=== PATIENT | female | born 1995 | race Caucasian/White ===

== ENCOUNTER 2018-08-24 06:48 | Emergency (ER) | payer BC ==
[~2018-08-24] VITALS: Ht 165.1 cm; Wt 72.6 kg
[~2018-08-24 06:48] MED LIST: Crutch1 EACH MISC; IBUP600 PO; MEDR150I IM
[2018-08-24] MEDS ORDERED: IBUP800 PO (09:47)
[2018-08-24] MEDS ORDERED: CYCL10 PO (09:47)
== END 2018-08-24 10:11 | disposition home or self-care (01) ==
LOC: ER 06:48
DX: M54.5 Low back pain (principal); M25.551 Pain in right hip; Z88.6 Allergy status to analgesic agent; Z88.5 Allergy status to narcotic agent
CPT/HCPCS: 72100; 73502; 99283-25

== ENCOUNTER → 2021-06-28 | Outpatient (CLI) | payer BC ==
[~2021-06-28] MED LIST changes: +CYCL10 PO; +IBUP800 PO
== END ==
LOC: LAB SHORT 08:32 → LAB 08:32
DX: N39.0 Urinary tract infection, site not specified (principal)
CPT/HCPCS: 87086

== ENCOUNTER → 2022-01-31 | Outpatient (CLI) | payer BC ==
[~2022-01-31] MED LIST changes: +ALBU2.5V5 INH; +ALBU90OI INH; +Prednisone20 MG PO; +Tamiflu75 MG PO
== END | disposition home or self-care (01) ==
LOC: LAB 08:37 → LAB SHORT 08:37
DX: N39.0 Urinary tract infection, site not specified (principal)
CPT/HCPCS: 87077; 87086; 87186

== ENCOUNTER → 2022-05-27 | Outpatient (CLI) | payer BC ==
[2022-05-28 13:48] LABS: Candida species (DNA Probe) Positive (NEGATIVE); G. vaginalis (DNA Probe) Negative (NEGATIVE); T. vaginalis (DNA Probe) Negative (NEGATIVE)
== END | disposition home or self-care (01) ==
LOC: LAB SHORT 14:59 → LAB 14:59
PROVIDERS: Advanced Practice Midwife
DX: N76.0 Acute vaginitis (principal)
CPT/HCPCS: 87480; 87510; 87660

== ENCOUNTER 2023-01-21 11:33 | Emergency (ER) | payer SELFPAY ==
[~2023-01-21] VITALS: Ht 162.6 cm; Wt 81.7 kg
[2023-01-21 12:03] LABS: BASOPHILS ABSOLUTE AUTO 0.08 K/mm3 (0.00-0.23); BASOPHILS PERCENT AUTO 1 % (0-2); EOSINOPHILS ABSOLUTE AUTO 0.09 K/mm3 (0.00-0.68); EOSINOPHILS PERCENT AUTO 1 % (0-6); Hematocrit 36.9 % (33.0-51.0); Hemoglobin 12.8 g/dL (11.5-16.0); IMMATURE GRAN ABSOLUTE AUTO 0.03 K/mm3 (0.00-0.10); IMMATURE GRAN PERCENT AUTO 0 % (0-1); LYMPHOCYTES ABSOLUTE AUTO 1.83 K/mm3 (0.84-5.20); LYMPHOCYTES PERCENT AUTO 21 % (21-46); MONOCYTES ABSOLUTE AUTO 0.64 K/mm3 (0.16-1.47); MONOCYTES PERCENT AUTO 7 % (4-13); Mean Corpuscular HGB 29.2 pg (26.0-34.0); Mean Corpuscular HGB Conc 34.7 g/dL (31.5-36.5); Mean Corpuscular Volume 84 fL (80-100); Mean Platelet Volume 9.4 fL (9.1-12.4); NEUTROPHILS ABSOLUTE AUTO 6.03 K/mm3 (1.96-9.15); NEUTROPHILS PERCENT AUTO 69 % (41-73); Platelet Count 328 K/mm3 (150-400); RDW Coefficient Variation 12.5 % (11.7-14.2); RDW Standard Deviation 38.8 fL (35.1-46.3); Red Blood Cell Count 4.39 M/mm3 (3.80-5.20)
[2023-01-21 12:27] LABS: Albumin, Blood 3.5 g/dL (3.4-5.0); Albumin/Globulin Ratio 1.1 (0.8-1.8); Bilirubin, Total 0.6 mg/dL (0.1-1.0); Bun/Creatinine Ratio 10.5 (12.0-20.0); Calcium, Blood 8.3 mg/dL (8.5-10.1); Creatinine, Blood 0.86 mg/dL (0.40-1.00); Globulin, Blood 3.2 g/dL (2.2-4.0); Potassium, Blood 3.8 mmol/L (3.5-5.5); Total Protein, Blood 6.7 g/dL (6.4-8.2)
[2023-01-21 12:45] VITALS: BP 115/60
[2023-01-21] MEDS ORDERED: CYCL10 PO (13:53)
== END 2023-01-21 14:05 | disposition home or self-care (01) ==
LOC: ER 11:33
PROVIDERS: Student in an Organized Health Care Education/Training Program
DX: S06.0XAA Concussion with loss of consciousness status unknown, initial encounter (principal); M25.551 Pain in right hip; J45.909 Unspecified asthma, uncomplicated; Z79.52 Long term (current) use of systemic steroids; Z79.899 Other long term (current) drug therapy; V80.010A Animal-rider injured by fall from or being thrown from horse in noncollision accident, initial encounter
CPT/HCPCS: 70450; 71045; 71260; 72125; 72170; 74177; 80053; 84703; 85025; 86850; 86900; 86901; 93005; 93010; J1885; J2405; Q9967

== ENCOUNTER → 2023-06-29 | Outpatient (CLI) | payer OTHER ==
[2023-06-29 16:34] LABS: Source, Urine Clean Catch
[2023-06-29 17:26] LABS: Bacteria Many /hpf; Red Blood Cells, Urine 0-2 /hpf (0-2); Squamous Epithelial Cells Mod /hpf (Few)
== END ==
LOC: LAB SHORT 13:51 → LAB 13:51
PROVIDERS: Advanced Practice Midwife
DX: Z34.01 Encounter for supervision of normal first pregnancy, first trimester (principal)
CPT/HCPCS: 81015; 87086

== ENCOUNTER 2024-02-04 06:36 | Inpatient (IN) | payer OTHER ==
[2024-02-04] VITALS (31 sets, daily range): BP systolic 90–143; BP diastolic 49–86
[~2024-02-04] VITALS: Ht 162.6 cm; Wt 109.0 kg
[2024-02-04] MEDS ORDERED: Bupivacaine HCl 2.5 MG/ML 10ML P/F Injection XX SCH (07:45)
[2024-02-04] MEDS ORDERED: Bupivacaine 0.5% HCl 5 MG/ML 30MLVIAL XX SCH (07:45)
[2024-02-04] MEDS ORDERED: Misoprostol 200 MCG Tab PR SCH (07:45)
[2024-02-04] MEDS ORDERED: Oxytocin 10 Unit / ML Vial IM SCH (07:45)
[2024-02-04] MEDS ORDERED: Methylergonovine Maleate 0.2MG / ML 1ML Amp IM SCH (07:45)
[2024-02-04] MEDS ORDERED: LR Oxytocin 20 Units 1,000 ML IV SCH ×2 (07:45→07:50)
[2024-02-04] MEDS ORDERED: Castor Oil 59.146 ML BTL TOP SCH (07:45)
[2024-02-04] MEDS ORDERED: FentaNYL Citrate 50 MCG/ML 2 ML Injection IV PRN ×2 (07:45→10:20)
[2024-02-04] MEDS ORDERED: Lidocaine HCl 1% 30 ML SDV XX SCH (07:45)
[2024-02-04] MEDS ORDERED: Lactated Ringer's 1,000 ML IV PRN (07:45)
[2024-02-04] MEDS ORDERED: Lactated Ringer's 1,000 ML IV SCH ×3 (07:50→12:25)
[2024-02-04 08:12] LABS: BASOPHILS ABSOLUTE AUTO 0.04 K/mm3 (0.00-0.23); BASOPHILS PERCENT AUTO 0 % (0-2); EOSINOPHILS ABSOLUTE AUTO 0.08 K/mm3 (0.00-0.68); EOSINOPHILS PERCENT AUTO 1 % (0-6); Hematocrit 32.9 % (33.0-51.0); Hemoglobin 11.7 g/dL (11.5-16.0); IMMATURE GRAN ABSOLUTE AUTO 0.06 K/mm3 (0.00-0.10); IMMATURE GRAN PERCENT AUTO 1 % (0-1); LYMPHOCYTES ABSOLUTE AUTO 2.08 K/mm3 (0.84-5.20); LYMPHOCYTES PERCENT AUTO 18 % (21-46); MONOCYTES ABSOLUTE AUTO 0.85 K/mm3 (0.16-1.47); MONOCYTES PERCENT AUTO 7 % (4-13); Mean Corpuscular HGB 30.2 pg (26.0-34.0); Mean Corpuscular HGB Conc 35.6 g/dL (31.5-36.5); Mean Corpuscular Volume 85 fL (80-100); NEUTROPHILS ABSOLUTE AUTO 8.46 K/mm3 (1.96-9.15); NEUTROPHILS PERCENT AUTO 73 % (41-73); Platelet Count 293 K/mm3 (150-400); RDW Coefficient Variation 13.1 % (11.7-14.2); RDW Standard Deviation 39.8 fL (35.1-46.3); Red Blood Cell Count 3.87 M/mm3 (3.80-5.20); White Blood Cell Count 11.57 K/mm3 (4.00-11.30)
[2024-02-04] MEDS ORDERED: PRENATAL TABLE1 EAC2 PO (08:45)
[2024-02-04] MEDS ORDERED: Ondansetron HCl 2 MG / ML 2ML Vial IV PRN (10:15)
[2024-02-04] MEDS ORDERED: Calcium Carbonate 500 MG Tab Chew PO PRN (10:15)
[2024-02-04] MEDS ORDERED: Acetaminophen 325 MG TABLET PO PRN (10:20)
[2024-02-04] MEDS ORDERED: ePHEDrine Sulfate 50 MG/ML 1ML Injection XX PRN (12:25)
[2024-02-04] MEDS ORDERED: FentaNYL 2mcg/ml-Bup 0.1% Epd 250 ML EPI PRN (12:25)
--- NOTE | 2024-02-04 18:43 | NUR ---
CONFIRMED WITH PT THAT SHE DOES NOT HAVE AN ALLERGY TO VICODIN, HYDROCODONE OR TYLENOL. THEIR IS FAMILY HISTORY WITH THE ALLERGY TO NARCOTICS SO WOULD LIKE TO STAY AWAY FROM THEM. SHE HAS TAKEN TYLENOL BEFORE WITH NO REACTIONS.
[2024-02-05] VITALS (20 sets, daily range): BP systolic 72–155; BP diastolic 39–90
[2024-02-05] MEDS ORDERED: Azithromycin 500 MG in NS 250 ML IV SCH ×2 (02:20→02:30)
[2024-02-05] MEDS ORDERED: Lactated Ringer's 1,000 ML IV SCH ×2 (02:20→04:00)
[2024-02-05] MEDS ORDERED: Citric Acid/Sodium Citrate 30 ML BTL PO PRN (02:20)
[2024-02-05] MEDS ORDERED: CeFAZolin Sodium 2,000 MG in NS 100 ML IV SCH (02:20)
[2024-02-05] MEDS ORDERED: Metoclopramide HCl 5MG / ML 2ML Vial IV PRN (02:25)
[2024-02-05] MEDS ORDERED: Bupivacaine 0.5% HCl 5 MG/ML 30MLVIAL ONE (02:57)
[2024-02-05] MEDS ORDERED: Bupivacaine 0.75%/Dext 8.25% 2 ML Amp IT ONE (02:58)
[2024-02-05] MEDS ORDERED: ePHEDrine Sulfate 50 MG/ML 1ML Injection ONE (03:15)
[2024-02-05] MEDS ORDERED: Oxytocin 10 Unit / ML Vial ONE (03:19)
[2024-02-05] MEDS ORDERED: LR Oxytocin 20 Units 1,000 ML IV SCH ×2 (03:55→04:00)
[2024-02-05] MEDS ORDERED: Ondansetron HCl 2 MG / ML 2ML Vial ONE (03:57)
[2024-02-05] MEDS ORDERED: Ondansetron HCl 2 MG / ML 2ML Vial IV PRN (04:00)
[2024-02-05] MEDS ORDERED: Morphine Sulfate 4 MG/1 ML Injection IV PRN (04:00)
[2024-02-05] MEDS ORDERED: Ketorolac Tromethamine 30mg Vial IV SCH (04:00)
[2024-02-05] MEDS ORDERED: Polyethylene Glycol 3350 17 gm PO PRN (04:00)
[2024-02-05] MEDS ORDERED: DiphenhydrAMINE HCL 25 MG Cap PO PRN (04:05)
[2024-02-05] MEDS ORDERED: Simethicone 80 MG Chew PO PRN (04:05)
[2024-02-05] MEDS ORDERED: OxyCODONE HCL 5 MG TAB PO PRN (04:05)
[2024-02-05] MEDS ORDERED: Rho(D) Immune Globulin 300 MCG / SYR IM ONE (04:05)
[2024-02-05] MEDS ORDERED: Methylergonovine Maleate 0.2MG / ML 1ML Amp IM PRN (04:10)
[2024-02-05] MEDS ORDERED: Misoprostol 200 MCG Tab PR PRN (04:10)
[2024-02-05] MEDS ORDERED: Magnesium Hydroxide Conc 10 ML UDC PO PRN (04:10)
[2024-02-05] MEDS ORDERED: Promethazine HCl 12.5 MG Supp PR PRN (04:10)
[2024-02-05] MEDS ORDERED: Metoclopramide HCl 10 MG Tab PO PRN (04:10)
[2024-02-05] MEDS ORDERED: Acetaminophen 500 MG Tab PO PRN (04:10)
[2024-02-05] MEDS ORDERED: Measles/Mumps/Rubella Vaccine 0.5 ML Vial SC ONE (04:15)
[2024-02-05] MEDS ORDERED: Promethazine HCl 25 MG Tab PO PRN (04:15)
[2024-02-05] MEDS ORDERED: Carboprost Tromethamine 250 MCG/ML 1ML Amp IM PRN (04:15)
[2024-02-05] MEDS ORDERED: ePHEDrine Sulfate 50 MG/ML 1ML Injection IV PRN (04:25)
[2024-02-05] MEDS ORDERED: FentaNYL Citrate 50 MCG/ML 2 ML Injection IV PRN (04:25)
[2024-02-05] MEDS ORDERED: Dexamethasone Sodium Phosphate 4 MG/ML 5ML VIAL IV PRN (04:25)
[2024-02-05] MEDS ORDERED: Ketorolac Tromethamine 30mg Vial IV PRN (05:10)
[2024-02-05] MEDS ORDERED: Lanolin Cream TOP PRN (05:15)
[2024-02-05] MEDS ORDERED: Ibuprofen 400 MG Tab PO SCH (08:00)
[2024-02-05] MEDS ORDERED: Prenatal Vit/FE Fumarate/FA 1 Tab PO SCH (09:00)
[2024-02-05] MEDS ORDERED: Docusate Sodium 100 MG Cap PO SCH (09:00)
[2024-02-05 14:20] LABS: BASOPHILS ABSOLUTE AUTO 0.04 K/mm3 (0.00-0.23); BASOPHILS PERCENT AUTO 0 % (0-2); EOSINOPHILS ABSOLUTE AUTO 0.02 K/mm3 (0.00-0.68); EOSINOPHILS PERCENT AUTO 0 % (0-6); Hematocrit 27.3 % (33.0-51.0); Hemoglobin 9.4 g/dL (11.5-16.0); IMMATURE GRAN ABSOLUTE AUTO 0.08 K/mm3 (0.00-0.10); IMMATURE GRAN PERCENT AUTO 1 % (0-1); LYMPHOCYTES PERCENT AUTO 12 % (21-46); MONOCYTES ABSOLUTE AUTO 0.96 K/mm3 (0.16-1.47); MONOCYTES PERCENT AUTO 6 % (4-13); Mean Corpuscular HGB 29.9 pg (26.0-34.0); Mean Corpuscular HGB Conc 34.4 g/dL (31.5-36.5); Mean Corpuscular Volume 87 fL (80-100); Mean Platelet Volume 10.2 fL (9.1-12.4); NEUTROPHILS ABSOLUTE AUTO 12.88 K/mm3 (1.96-9.15); NEUTROPHILS PERCENT AUTO 81 % (41-73); Platelet Count 253 K/mm3 (150-400); RDW Coefficient Variation 13.2 % (11.7-14.2); RDW Standard Deviation 41.1 fL (35.1-46.3); Red Blood Cell Count 3.14 M/mm3 (3.80-5.20); White Blood Cell Count 15.88 K/mm3 (4.00-11.30)
[2024-02-05] MEDS ORDERED: Witch Hazel/Glycerin PADS TOP SCH (20:15)
[2024-02-05] MEDS ORDERED: Ketorolac Tromethamine 30mg Vial IV ONE (23:15)
[2024-02-06 05:06] VITALS: BP 93/54
[2024-02-06 08:44] VITALS: BP 104/53
[2024-02-06] MEDS ORDERED: Sod Ferric Gluc Complx/Sucrose 125 MG in NS 100 ML IV SCH (09:00)
[2024-02-06] MEDS ORDERED: Ferrous Sulfate 325 MG Tab PO SCH (10:00)
[2024-02-06 11:13] VITALS: BP 104/52
[2024-02-06 14:56] VITALS: BP 104/55
[2024-02-06 20:48] VITALS: BP 96/51
[2024-02-07 00:34] VITALS: BP 106/53
[2024-02-07 04:54] VITALS: BP 115/53
[2024-02-07 07:30] VITALS: BP 109/61
[2024-02-07 11:22] VITALS: BP 112/55
--- NOTE | 2024-02-08 15:22 | NUR ---
02/08/24 1522 Addis Bermudez VERIFICATIONS: EDIT CHART.
== END 2024-02-07 11:45 | disposition home or self-care (01) | DRG 787 ==
LOC: OBS 06:36 → BC 06:50
PROVIDERS: Obstetrics & Gynecology; ADMIT Advanced Practice Midwife
PROC: 10D00Z1 Extraction of Products of Conception, Low, Open Approach (ICD-10-PCS; principal; 2024-02-05 02:20)
DX: O62.1 Secondary uterine inertia (principal); D62 Acute posthemorrhagic anemia; Z3A.39 39 weeks gestation of pregnancy; Z37.0 Single live birth; O99.214 Obesity complicating childbirth; O33.9 Maternal care for disproportion, unspecified; H91.91 Unspecified hearing loss, right ear; O99.892 Other specified diseases and conditions complicating childbirth; Z88.8 Allergy status to other drugs, medicaments and biological substances; Z91.040 Latex allergy status; Z98.890 Other specified postprocedural states; Z79.899 Other long term (current) drug therapy; O90.81 Anemia of the puerperium; Z67.11 Type A blood, Rh negative
CPT/HCPCS: 36415; 51702; 85025; 86850; 86900; 86901; 86923; 90471; 90707; A9270; J0456; J0690; J1885; J2405; J2590; J2765; J2916; J7050; J7120

== ENCOUNTER → 2024-05-14 | Outpatient (CLI) | payer OTHER ==
[~2024-05-14] MED LIST changes: +PRENATAL TABLE1 EAC2 PO
[2024-05-14 19:47] LABS: Bacterial Vaginosis PCR Negative (NEGATIVE); Candida Group, PCR NOT DETECTED (NOT DETECT); Candida glabrata-krusei, PCR NOT DETECTED (NOT DETECT)
== END | disposition home or self-care (01) ==
LOC: LAB SHORT 17:07 → LAB 17:07
PROVIDERS: Advanced Practice Midwife
DX: N94.10 Unspecified dyspareunia (principal)
CPT/HCPCS: 87481; 87661; 87801

== ENCOUNTER → 2024-12-11 | Outpatient (CLI) | payer OTHER ==
[2024-12-11 17:16] LABS: BASOPHILS ABSOLUTE AUTO 0.08 K/mm3 (0.00-0.23); BASOPHILS PERCENT AUTO 1 % (0-2); EOSINOPHILS ABSOLUTE AUTO 0.11 K/mm3 (0.00-0.68); EOSINOPHILS PERCENT AUTO 1 % (0-6); Hematocrit 42.1 % (33.0-51.0); Hemoglobin 14.1 g/dL (11.5-16.0); IMMATURE GRAN ABSOLUTE AUTO 0.01 K/mm3 (0.00-0.10); IMMATURE GRAN PERCENT AUTO 0 % (0-1); LYMPHOCYTES ABSOLUTE AUTO 2.64 K/mm3 (0.84-5.20); LYMPHOCYTES PERCENT AUTO 34 % (21-46); MONOCYTES PERCENT AUTO 8 % (4-13); Mean Corpuscular HGB 28.3 pg (26.0-34.0); Mean Corpuscular HGB Conc 33.5 g/dL (31.5-36.5); Mean Corpuscular Volume 85 fL (80-100); Mean Platelet Volume 9.4 fL (9.1-12.4); NEUTROPHILS ABSOLUTE AUTO 4.26 K/mm3 (1.96-9.15); NEUTROPHILS PERCENT AUTO 55 % (41-73); Platelet Count 383 K/mm3 (150-400); RDW Coefficient Variation 12.7 % (11.7-14.2); RDW Standard Deviation 38.8 fL (35.1-46.3); Red Blood Cell Count 4.98 M/mm3 (3.80-5.20)
[2024-12-11 19:09] LABS: C-REACTIVE PROTEIN, EXT RANGE <0.290 mg/dL (0.000-0.300)
[2024-12-11 19:19] LABS: Alanine Aminotransfer (ALT/SGP 29 U/L (12-78); Albumin, Blood 4.1 g/dL (3.4-5.0); Albumin/Globulin Ratio 1.1 (0.8-1.8); Alk Phos 113 U/L (50-136); Anion Gap 10 mmol/L (3-11); Aspartate Aminotrans (AST/SGOT 18 U/L (12-37); Bilirubin, Total 0.5 mg/dL (0.1-1.0); Blood Urea Nitrogen 11 mg/dL (8-24); Bun/Creatinine Ratio 12.9 (12.0-20.0); CHOL/HDL RATIO 4.9; CO2, Blood 25 mmol/L (21-32); Calcium, Blood 9.4 mg/dL (8.5-10.1); Chloride, Blood 104 mmol/L (98-108); Cholesterol 186 mg/dL (50-200); Creatinine, Blood 0.86 mg/dL (0.40-1.00); Globulin, Blood 3.6 g/dL (2.2-4.0); Glomerular Filtration Rate 95 (60-); Glucose, Blood 78 mg/dL (70-99); HDL Cholesterol 38 mg/dL (>39); LDL/HDL RATIO 2.7; Low Density Lipoprotein Chol 103 mg/dL (0-110); Potassium, Blood 3.6 mmol/L (3.5-5.5); Sodium, Blood 135 mmol/L (136-145); Total Protein, Blood 7.7 g/dL (6.4-8.2); Triglycerides 223 mg/dL (30-140); Very Low Density Lipoprot Chol 44 mg/dL (6-28)
[2024-12-13 07:03] LABS: ANTI-NUCLEAR AB ANA,IGG ELISA None Detected (None Detected)
== END | disposition home or self-care (01) ==
LOC: LAB SHORT 12:05 → LAB 12:05
PROVIDERS: Student in an Organized Health Care Education/Training Program
DX: Z00.00 Encounter for general adult medical examination without abnormal findings (principal); R42 Dizziness and giddiness; R53.83 Other fatigue
CPT/HCPCS: 80053; 80061; 83036; 84443; 85025; 85651; 86038; 86140

== ENCOUNTER → 2025-05-08 | Outpatient (CLI) | payer OTHER | LOC: LAB SHORT 10:29 → LAB 10:29 | DX: N39.0 Urinary tract infection, site not specified (principal) | CPT/HCPCS: 87077; 87086; 87186 ==